=== PATIENT | female | born 1975 | race Caucasian/White ===

== ENCOUNTER 2016-09-28 01:54 | Emergency (ER) | payer MEDICAID ==
[~2016-09-28] VITALS: Ht 167.6 cm; Wt 100.0 kg
[2016-09-28 01:57] VITALS: BP 182/87
[2016-09-28] MEDS ORDERED: HYDROcodone/APAP 5/325 TABLET ONE (02:54)
[2016-09-28] MEDS ORDERED: HYDROcodone/APAP 5/325 TABLET PO ONE (03:00)
== END 2016-09-28 03:26 | disposition home or self-care (01) ==
LOC: ED 03:15
DX: S93.402A Sprain of unspecified ligament of left ankle, initial encounter (principal); W01.0XXA Fall on same level from slipping, tripping and stumbling without subsequent striking against object, initial encounter; Y93.89 Activity, other specified; Y92.89 Other specified places as the place of occurrence of the external cause; Y99.2 Volunteer activity
CPT/HCPCS: 99284